=== PATIENT | female | born 1995 | race Caucasian/White ===

== ENCOUNTER 2019-04-12 09:27 | Emergency (ER) | payer OTHER ==
[~2019-04-12] VITALS: Ht 157.5 cm; Wt 95.2 kg
[~2019-04-12 09:27] MED LIST: KEFLEX500 MG PO; PRENATAL MULTI1 EAC3 PO; ZOFRAN ODT4 MG PO
== END 2019-04-12 10:40 | disposition home or self-care (01) ==
LOC: ED 09:27
DX: S93.401A Sprain of unspecified ligament of right ankle, initial encounter (principal); W10.9XXA Fall (on) (from) unspecified stairs and steps, initial encounter
CPT/HCPCS: 73610; 99283-25

== ENCOUNTER 2022-06-11 14:55 | Emergency (ER) | payer OTHER ==
[~2022-06-11] VITALS: Ht 157.5 cm; Wt 95.2 kg
[2022-06-11] MEDS ORDERED: ONDANSETRON ODT8 MG PO (16:51)
--- NOTE | 2022-06-12 07:32 | EKG ---
[facility] [address] [place], [place] [address] Signed Sinus bradycardia with marked sinus arrhythmia Otherwise normal ECG No previous ECGs available Confirmed by DAILY GREWAL MD [id number] on 06/12/2022 7:31:56 AM Electronically Signed By: DAILY GREWAL MD 06/12/22 0732 PATIENT NAME: MARAH CASH Electrocardiogram DATE OF : [birth year] PHYSICIAN: DAILY GREWAL MD REPORT #: [id number] REPORT IS CONFIDENTIAL AND NOT TO BE RELEASED WITHOUT AUTHORIZATION
== END 2022-06-11 17:09 | disposition home or self-care (01) ==
LOC: ED 14:55
DX: R51.9 Headache, unspecified (principal); R00.1 Bradycardia, unspecified
CPT/HCPCS: 36415; 51701; 70450; 80053; 81001; 84703; 85025; 93005; 93010; 99284-25; J2270; J2405; J7030